=== PATIENT | female | born 1985 | race Caucasian/White ===

== ENCOUNTER 2024-06-14 06:42 | Emergency (ER) | payer BC ==
[2024-06-14 07:10] LABS: #Basophils 0.06 10x3/uL (0.0-0.2); %Basophils 0.6 % (0.0-1.0); %Eosinophils 1.6 % (0.0-10.0); %Lymphocytes 27.2 % (21.0-51.0); %Monocytes 9.7 % (0.0-10.0); %Neutrophils 60.5 % (42.0-75.0); Hematocrit 43.3 % (36.0-47.0); Hemoglobin 14.8 g/dL (12.0-16.0); Mean Corpuscular HGB CONC 34.2 g/dL (32.0-36.0); Mean Corpuscular Hemoglobin 31.6 pg (27.0-31.0); Mean Corpuscular Volume 92.5 fL (78.0-98.0); Mean Platelet Volume 10.1 fL (7.4-10.4); Platelet Count 258 10x3/uL (130-400); RBC Distribution Width 12.7 % (11.5-14.5); Red Blood Cell (RBC) Count 4.68 mill/uL (4.20-5.40)
[2024-06-14 07:26] LABS: BHCG - Serum Negative (NEGATIVE); Pregs Control Background? CLEAR/WHITE (CLR/WHITE); Pregs Control Bar Appear? YES (CONTROL BAR)
[2024-06-14 07:27] LABS: ALT (SGPT) 24 U/L (8-55); AST (SGOT) 32 U/L (5-34); Albumin 4.1 g/dL (3.5-5.0); Alkaline Phosphatase 79 U/L (40-110); Anion Gap 16 mmol/L (10-20); BUN (Urea Nitrogen) 7 mg/dL (7.0-18.7); Bilirubin, Total 0.4 mg/dL (0.2-1.2); Calc. Creatinine Clearance 0 mL/min (70-130); Calcium 9.2 mg/dL (7.8-10.44); Carbon Dioxide 23 mmol/L (22-29); Chloride 102 mmol/L (98-107); Estimated GFR 111; Globulin 4.8 g/dL (2.4-3.5); Glucose 104 mg/dL (70-105); Protein, Total 8.9 g/dL (6.0-8.3); Sodium 138 mmol/L (136-145)
[2024-06-14 07:29] LABS: Troponin I Less than 0.010 ng/mL (< 0.028)
[2024-06-14 07:51] LABS: Magnesium 2.1 mg/dL (1.6-2.6)
[2024-06-14] MEDS ORDERED: Potassium Chloride 20 MEQ (100 mL) BAG ONE (07:58)
[2024-06-14] MEDS ORDERED: Potassium Chloride 20 MEQ TAB ONE (07:58)
[2024-06-14 11:38] LABS: Troponin I Less than 0.010 ng/mL (< 0.028)
== END 2024-06-14 12:45 | disposition home or self-care (01) ==
LOC: ERS 06:42
DX: R00.2 Palpitations (principal); I10 Essential (primary) hypertension; E87.6 Hypokalemia; I47.10 Supraventricular tachycardia, unspecified
CPT/HCPCS: 36415; 80053; 83735; 84484; 84703; 85025; 93005; 96374; J3480